=== PATIENT | male | born 1995 | race Caucasian/White ===

== ENCOUNTER 2023-07-08 22:35 | Emergency (ER) | payer OTHER ==
[2023-07-08 22:54] VITALS: BP 136/83; PULSE 84; RESP 18; TEMP 98.4; BMI 27.8
[2023-07-08] MEDS ORDERED: ALBUTEROL SO4 0.083% IH SOL 2.5 MG/3 ML VIAL.NEB. NEB ONE ×2 (23:26→23:50)
[2023-07-08 23:55] LABS: BASO % 0.4 % (0-2.0); EOS % 0.4 % (0-4.5); HEMATOCRIT 43.2 % (35.4-49); HEMOGLOBIN 14.9 GM/dL (11.7-16.9); LYMPH % 30.6 % (8-40); MCH 30.3 pg (25.7-33.7); MCHC 34.5 g/dl (32.0-35.9); MEAN CELL VOLUME 87.8 fl (80-96); MEAN PLT VOLUME 7.8 fl (7.5-11.1); MONO % 9.4 % (3.8-10.2); NEUT % 59.2 % (42.8-82.8); PLATELET COUNT 262 10^3/uL (134-434); RBC 4.92 M/mm3 (4.00-5.60); WHITE BLOOD COUNT 6.7 K/mm3 (4.0-10.0)
[2023-07-09 00:14] LABS: BLOOD UREA NITROGEN 20.2 mg/dL (7-18)
[2023-07-09 00:16] LABS: CREATININE 0.9 mg/dL (0.55-1.3)
[2023-07-09 00:18] LABS: BILIRUBIN,TOTAL 0.2 mg/dL (0.2-1); TOT PROT 7.6 g/dl (6.4-8.2)
== END 2023-07-09 01:02 | disposition home or self-care (01) ==
LOC: JER 22:35
PROC: 3E0F7GC Introduction of Other Therapeutic Substance into Respiratory Tract, Via Natural or Artificial Opening (ICD-10-PCS; principal; 2023-07-08)
DX: R07.89 Other chest pain (principal); R06.02 Shortness of breath; F17.290 Nicotine dependence, other tobacco product, uncomplicated; Z20.822 Contact with and (suspected) exposure to COVID-19
CPT/HCPCS: 0241U-QW; 36415; 71046-TC-FY; 80053; 84484; 85025; 93005; 93010; 99285-25

== ENCOUNTER 2024-07-04 11:12 | Emergency (ER) | payer OTHER ==
[2024-07-04 11:25] VITALS: BP 149/97; RESP 20; TEMP 97.5; BMI 37.4
[2024-07-04] MEDS ORDERED: AMOX TR/POT CLAV 875MG/125MG TABLETS (FP) ONE (12:29)
[2024-07-04] MEDS ORDERED: ACETAMINOPHEN 500 MG TABLET (FP) ONE (12:29)
[2024-07-04] MEDS: ACETAMINOPHEN 500 MG TABLET (FP) PO ONE (12:33)
[2024-07-04] MEDS: AMOX TR/POT CLAV 875MG/125MG TABLETS (FP) PO ONE (12:33)
[2024-07-04 12:34] VITALS: PULSE 105
[2024-07-04 13:06] LABS: THROAT:GRP A STREP NOT DETECTED (NOTDETECTED)
== END 2024-07-04 12:46 | disposition home or self-care (01) ==
LOC: JERFT 11:12
DX: J02.9 Acute pharyngitis, unspecified (principal); R59.0 Localized enlarged lymph nodes; Z20.822 Contact with and (suspected) exposure to COVID-19
CPT/HCPCS: 0241U-QW; 87651; 99283-25